=== PATIENT | male | born 1990 | race African-American/Black ===

== ENCOUNTER 2017-06-27 14:45 | Emergency (ER) | payer BC ==
[2017-06-27] MEDS ORDERED: Ketorolac Tromethamine 30 MG/ML VIAL ONE (16:02)
== END 2017-06-27 16:48 | disposition home or self-care (01) ==
LOC: ERS 14:45
DX: S76.311A Strain of muscle, fascia and tendon of the posterior muscle group at thigh level, right thigh, initial encounter (principal); S76.012A Strain of muscle, fascia and tendon of left hip, initial encounter; X50.0XXA Overexertion from strenuous movement or load, initial encounter; Y93.62 Activity, american flag or touch football
CPT/HCPCS: 96372; J1885